=== PATIENT | male | born 1960 | race Two or more races ===

== ENCOUNTER 2020-10-31 21:31 | Emergency (ER) | payer SELFPAY ==
[~2020-10-31] VITALS: Ht 170.2 cm; Wt 105.7 kg
[2020-10-31 21:43] VITALS: BP 159/108
--- NOTE | 2020-10-31 22:48 | NUR ---
PT TAKEN TO BED 4
--- NOTE | 2020-10-31 22:50 | NUR ---
C/o blood when wiping after pooping. patient reports having BM with normal color and normal formation. Took tylenol yesterday but has not taken any medications today. bowel sounds are active. Patient denies any pain. AAOx4. VSS. Pmh denies NKA
--- NOTE | 2020-10-31 23:05 | NUR ---
Dr. Huffman examining patient.
[2020-10-31] MEDS ORDERED: HYDR-2734 TP (23:22)
[2020-10-31] MEDS ORDERED: DOCU-299 PO (23:22)
[2020-10-31 23:32] VITALS: BP 122/71
--- NOTE | 2020-10-31 23:32 | NUR ---
Patient discharged with v/s stable. Written and verbal after care instructions given and explained. Patient alert, oriented and verbalized understanding of instructions. Carried with steady gait. All questions addressed prior to discharge. ID band removed. Patient advised to follow up with PMD. Rx of colace, and hydrocortisone given. Patient educated on indication of medication including possible reaction and side effects. Opportunity to ask questions provided and answered.
== END 2020-10-31 23:32 | disposition home or self-care (01) ==
LOC: MED 21:31
DX: K64.9 Unspecified hemorrhoids (principal); Z79.899 Other long term (current) drug therapy
CPT/HCPCS: 99282